=== PATIENT | male | born 1975 | race Caucasian/White ===

== ENCOUNTER 2021-06-30 23:13 | Emergency (ER) | payer OTHER ==
[~2021-06-30] VITALS: Ht 177.8 cm; Wt 95.5 kg
[2021-06-30 23:47] VITALS: BP 150/94
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
== END 2021-07-01 00:20 | disposition home or self-care (01) ==
LOC: ER 23:13
DX: Z04.41 Encounter for examination and observation following alleged adult rape (principal); F32.9 Major depressive disorder, single episode, unspecified
CPT/HCPCS: 99281